=== PATIENT | female | born 1985 | race Caucasian/White ===

== ENCOUNTER 2020-01-20 10:51 | Outpatient (CLI) | payer OTHER, SELFPAY | END 2020-01-20 10:52 | disposition home or self-care (01) | LOC: ANHAUDIO 10:52 | PROVIDERS: PCP Family Medicine; Visit Provider Otolaryngology | DX: R42 Dizziness and giddiness (principal) | CPT/HCPCS: 92552; 92556; 92567 ==

== ENCOUNTER 2021-06-28 07:44 | Outpatient (CLI) | payer OTHER, SELFPAY ==
[2021-06-28 08:25] LABS: Beta HCG Quantitative < 2.39 mIU/ML
== END 2021-06-28 07:45 | disposition home or self-care (01) ==
PROVIDERS: PCP Family Medicine; Visit Provider Obstetrics & Gynecology
DX: N92.6 Irregular menstruation, unspecified (principal)
CPT/HCPCS: 36415; 84702

== ENCOUNTER 2023-11-21 08:54 | Outpatient (CLI) | payer OTHER, SELFPAY ==
--- NOTE | ~2023-11-21 | US_ITS ---
EXAMINATION: US pelvic complete w TV DATE: 11/21/2023 09:29 INDICATION: Pelvic and perineal pain. TECHNIQUE: Multiple transabdominal and transvaginal sonographic images of the pelvis were obtained. COMPARISON: CT abdomen and pelvis 11/20/2017 FINDINGS: TRANSABDOMINAL ULTRASOUND: The uterus measures 10.7 x 4.5 x 5.4 cm. There is no free fluid in the pelvis. TRANSVAGINAL ULTRASOUND: The endometrial complex measures 5 mm in thickness. There is an intrauterine device in expected posit ion. There is a 2.8 cm subserosal fibroid. The right ovary measures 3.6 x 3.0 x 3.8 cm. The left ovar y measures 3.3 x 2.1 x 2.3 cm. There is normal vascular flow in the ovaries. IMPRESSION: 1. Uterine fibroid. 2. Intrauterine device in expected position. Reviewed, dictated and finalized at location A.
== END 2023-11-21 08:55 ==
LOC: MICIMG 08:55
PROVIDERS: PCP Obstetrics & Gynecology; Visit Provider Obstetrics & Gynecology
DX: R10.2 Pelvic and perineal pain (principal); Z30.431 Encounter for routine checking of intrauterine contraceptive device; D25.9 Leiomyoma of uterus, unspecified
CPT/HCPCS: 76830; 76856

== ENCOUNTER 2024-08-02 11:08 | Outpatient (CLI) | payer OTHER, SELFPAY ==
--- NOTE | ~2024-08-02 | US_ITS ---
Pelvic ultrasound. Clinical History: Pelvic pain Technique: Realtime transabdominal and transvaginal scanning of the pelvis was performed. Color flow Doppler and Doppler spectral analysis were performed. Findings: The uterus is anteverted. The endometrial stripe has a thickness of 5 mm. IUD in satisfact ory position. Fibroid towards the fundus measures 2.3 x 2.3 x 2.5 cm.. The right ovary measures 3.6 x 2.2 x 3.4 cm. No significant right ovarian or adnexal mass is seen. The left ovary measures 2.5 x 1.9 x 2.5 cm. No significant left ovarian or adnexal mass is seen. There is no evidence of free fluid in the cul de sac. Impression: Uterine fibroid, as above. IUD in place. Reviewed, dictated and finalized at location . Impression: Uterine fibroid, as above. IUD in place.
== END 2024-08-02 11:09 | disposition home or self-care (01) ==
LOC: MICIMG 11:09
PROVIDERS: PCP Family Medicine; Visit Provider Student in an Organized Health Care Education/Training Program
DX: R10.2 Pelvic and perineal pain (principal); Z97.5 Presence of (intrauterine) contraceptive device
CPT/HCPCS: 76830; 76856

== ENCOUNTER 2024-12-07 16:01 | Emergency (ER) | payer OTHER, SELFPAY ==
--- OUTSIDE RECORDS SUMMARY | 2018-04-25 05:15 | XMS_ITS | Continuity of Care Document ---
[facility] Organization [facility] Address [address] [place] [address] Phone Care Team Providers Care Research And Development Tester Name Role Phone Kimberli HAMEED, Juaquin Unavailable Unavailable Advance Directives Directive Yes / No Effective Date File Name No Information Encounters Encounter Description Practice Location Reason(s) For Visit Diagnoses Date Provider Providers Copied on [facility], [address], [place], [place], [id number], [place] tel:[phone] [facility] No Information Kimberli Reza. [address] , [place], [place], [id number], [place]. tel:[phone] Referring Provider: Garland Long DO, [address], [place], [address]. tel:[phone] Family History Family Member Type Diagnosis Age At Onset No Information Payers Payer name Insurance type Covered constitution party ID Authoriza tiloli(s) [facility] CI [id number] Social History Type Description Quantity Date Captured Comments Sex Female Smoking Status No Information Chief Complaint And Reason For Visit No Information Reason For Referral Reason For Referral No Information History Of Present Illness Encounter Date Complaint History Of Prese nt Illness No Information Functional Status Date Functional Assessmen t No Information Instructions Date Instruction Additional Infor mation No Information Assessments Type Assessment Date No Information Patient Care Teams Name Effective Dates (start - stop) Status Members No Information
--- OUTSIDE RECORDS SUMMARY | 2020-06-01 08:00 | XMS_ITS | Continuity of Care Document ---
Author Organization [facility] Address [address] [place] [address] Phone Care Team Providers Care Manager Data Center Name Role Phone Vin PT,MPT,ATC, Fabricio Unavailable Unavai lable Procedures Procedure Date Therapeutic Activities Neuromuscular Re-Ed Manual Therapy Therapeutic Exercise Therapeutic Activities Neuromuscular Re-Ed Manual Therapy Neuromuscular Re-Ed Therapeutic Activities Manual Therapy Therapeutic Exercise PT Evaluation Moderate Complexity Therapeutic Activities Manual Therapy Advance Directives Directive Yes / No Effective Date File Name No Information Encounters Encounter Description Practice Location Reason(s) For Visit Diagnoses Date Provider Providers Copied on Encounter [facility] [address], [place], [place], [id number], tel:[phone] [place] No Information b- 1 DIALLO [place], [place]. Referring Provider: [address], [place], [address]. tel:[phone] [facility], [address], [place], [place], [id number], tel:[phone] [place] No Information b 1 DIALLO [place], [place]. Referring Provider: [address], [place], [address]. tel:[phone] [facility], [address], [place], [place], [id number], tel:[phone] [place] No Information b0 1 Vin Faith [place], . Referring Provider: [address], [place], [address]. tel:[phone] [facility], [address], [place], [place], [id number], tel:[phone] [place] No Information b0 1 Vin Faith [place], . Referring Provider: [address], [place], [address]. tel:[phone] Family History Family Member Type Diagnosis Age At Onset No Information Payers Payer name Insurance type Covered democrat ID Authoriza tion(s) No Information Social History Type Description Quantity Date Captured Comments Sex Female Smoking Status No Information Chief Complaint And Reason For Visit No Information Reason For Referral Reason For Referral No Information History Of Present Illness Encounter Date Complaint History Of Prese nt Illness No Information Functional Status Date Functional Assessmen t No Information Instructions Date Instruction Additional Infor calvin Giving encouragement to exercise Related to Overweight Giving encouragement to exercise Related to Overweight Assessments Type Assessment Date No Information Patient Care Teams Name Effective Dates (start - stop) Status Members No Information
[2024-12-07 16:08] VITALS: BP 117/76; PULSE 90; RESP 18; TEMP 36.3; O2SAT 98
[2024-12-07] MEDS: FLUORESCEIN SOD 1 MG/STRIP (16:13)
[2024-12-07] MEDS: TETRACAINE HCL 0.5% OPHTH SOLN 4 ML BTL 1 DROP (16:13)
--- NOTE | 2024-12-07 16:24 | ED.GENADULT ---
HPI - General Adult General Chief complaint: Eye Problems Stated complaint: left eye injury Time Seen by Provider: 12/07/24 16:14 Related Data Home Medications ?Medication ?Instructions ?Recorded ?Confirmed ?Last Taken ?Type levonorgestrel (Mirena) 1 device intrauterine ONCE 07/25/24 09/02/24 Unknown History Allergies Allergy/AdvReac Type Severity Reaction Status Date / Time clavulanic acid Allergy Mild ITCHING,HERI Verified 09/02/24 10:15 H sulfamethoxazole Allergy Mild ITCHING,HERI Verified 09/02/24 10:15 H amoxicillin Allergy Unknown Rash, Verified 09/02/24 10:15 Itchiness azithromycin Allergy Unknown Rash, Verified 09/02/24 10:15 Itchiness cefaclor Allergy Unknown Rash, Verified 09/02/24 10:15 Itchiness Penicillins Allergy Unknown Rash, Verified 09/02/24 10:15 Ichiness sulfamethizole Allergy Unknown Rash, Verified 09/02/24 10:15 Itchiness trimethoprim Allergy Unknown Rash, Verified 09/02/24 10:15 Itchiness PMFSH Past Medical History Medical History Overweight with body mass index (BMI) of 28 to 28.9 in adult BMI 27.0-27.9,adult Diverticulitis BMI 29.0-29.9,adult BMI 30.0-30.9,adult BMI 32.0-32.9,adult Encounter for insertion of mirena IUD Encounter for screening examination for sexually transmitted disease Anxiety rx meds Surgical History Surgical History History of gynecological procedure (06/28/21) mirena iud insertion History of discectomy (05/18/18) of the spine History of back surgery (08/29/18) spinal leak repaired History of gynecological procedure (08/27/19) mirena iud removal Bone marrow donor (~03/17/20) bone marrow donation to brother History of gynecological procedure (09/03/20) suction D&C missed AB History of gynecological procedure (01/28/21) suction D&C Missed AB Family History Family History Grandparent Diabetes mellitus Sibling Leukemia, acute myeloid Family history of malignant neoplasm Other Breast cancer paternal aunt Mother Parkinson disease Leukemia, chronic Hypertension Social History Social History (Updated 09/02/24 @ 10:15 by Chiquita Larsen [facility], 1928–1983) Smoking status: Never smoker Second hand tobacco smoke exposure: No Alcohol intake: current Drinks per week: 3 Substance use: never Substance use type: does not use Do You Feel Safe in your Home?: Yes Lack of Transportation: No Lack of Food: Never True Current Housing: Decline to Answer Concerned About Future Housing: Decline to Answer Difficulty Paying Gas/Electric Bills: Decline to Answer Difficulty Paying for Meds: Decline to Answer Currently Unemployed: Decline to Answer Education: Decline to Answer Difficulty w/ Childcare or Family Care: Decline to Answer Living arrangements: other Additional living arrangements comments: Occupation/Education: occupation 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 Gender identity (if verbalized by the patient): Female Sexual Orientation (if Verbalized by the Patient): Straight or Heterosexual Course Vital Signs Vital signs: Vital Signs Temperature 36.3 C L 12/07/24 16:08 Pulse Rate 90 12/07/24 16:08 Respiratory Rate 18 12/07/24 16:08 Blood Pressure 117/76 12/07/24 16:08 Pulse Oximetry 98 12/07/24 16:08 Oxygen Delivery Room Air 12/07/24 16:08 Temperature 36.3 C L 12/07/24 16:08 Pulse Rate 90 12/07/24 16:08 Respiratory Rate 18 12/07/24 16:08 Blood Pressure 117/76 12/07/24 16:08 Pulse Oximetry 98 12/07/24 16:08 Oxygen Delivery Room Air 12/07/24 16:08 Medical Decision Making Vital Signs Vital Signs: Vital Signs Temperature 36.3 C L 12/07/24 16:08 Pulse Rate 90 12/07/24 16:08 Respiratory Rate 18 12/07/24 16:08 Blood Pressure 117/76 12/07/24 16:08 Pulse Oximetry 98 12/07/24 16:08 Oxygen Delivery Room Air 12/07/24 16:08 Temperature 36.3 C L 12/07/24 16:08 Pulse Rate 90 12/07/24 16:08 Respiratory Rate 18 12/07/24 16:08 Blood Pressure 117/76 12/07/24 16:08 Pulse Oximetry 98 12/07/24 16:08 Oxygen Delivery Room Air 12/07/24 16:08 Discharge Plan Discharge Clinical Impression: Abrasion, corneal Qualifiers: Encounter type: initial encounter Laterality: left Qualified Code(s): S05.02XA - Injury of conjunctiva and corneal abrasion without foreign body, left eye, initial encounter Patient Disposition: Home Condition: Stable Instructions: Antibiotic Form, Corneal Abrasion (ED) Patient Language: Guyanese Prescriptions: New moxifloxacin 0.5 % drops 1 drp LEFT EYE TID 7 Days Qty: 3 0RF No Action ferrous sulfate 325 mg (65 mg iron) tablet 325 mg PO DAILY Qty: 30 0RF Mirena 21 mcg/24hr (up to 8 yrs) 52 mg intrauterine device 1 device intrauterine ONCE Rx Instructions: as a single dose Nurtec ODT 75 mg tablet,disintegrating 75 mg PO ONCE PRN (Reason: migraine headache) Qty: 8 3RF Rx Instructions: as a single dose sertraline 50 mg tablet 50 mg PO DAILY Qty: 90 1RF Contrave 8-90 mg tablet extended release 2 tablet PO BID Qty: 120 0RF alprazolam [Xanax] 0.25 mg tablet 0.25 mg PO BID PRN (Reason: anxiety) Qty: 60 0RF trazodone 50 mg tablet 50 mg PO QHS PRN (Reason: insomnia) Qty: 90 1RF Follow-up/Referrals: Diana York FNP [Primary Care Provider, [facility]] Time of Disposition: 16:28
[2024-12-07] MEDS: TETRACAINE HCL 0.5% OPHTH SOLN 4 ML BTL 1 DROP EACH EYE (16:30)
[2024-12-07] MEDS: FLUORESCEIN SOD 1 MG/STRIP EACH EYE (16:30)
--- OUTSIDE RECORDS SUMMARY | 2024-12-07 16:35 | XMS_ITS | Continuity of Care Document ---
Author Name [facility] Organization [facility] Care Team Providers Care Upholstered Goods Crafter Name Role Phone [facility] Unavailable Unavailable Immunizations Combined list of available immunizations from the Department of Defense and Veterans Affairs facilities. Immunization Series Date Given Administered By Site Reaction Lot Number CVX Code Drug Slip Dumper Status Comments Source COVID Vaccine Pfizer 2020 208 PFIZER complet ed COVID Vaccine Pfizer 10/12/20 Given Ambulat ory Pharmac y COVID Vaccine Pfizer 2020 208 PFIZER complet ed COVID Vaccine Pfizer 09/12/20 Given Ambulat ory Pharmac y Procedures Combined list of: 1) [facility], not all [place] non-surgical procedures are included; 2) All procedures from the Department of [facility] facilities. Procedure Procedure Type Code Date Perfomer Comments Sourc e No data available for this section Ambulatory P harmacy Social History Combined list of available smoking, tobacco, and other social history from Department of Defense and Veterans Affairs facilities. Social History Type Response Date Comment Sourc e Sexual Orientation Ambula tory Pharmacy Gender identity Ambulator y Pharmacy Sex Representation Female (finding) Unknown Organization Assessment and Plan Combined list of future care activities from Department of Defense and Veterans Affairs facilities (e.g., assessment and plan notes, appointments, orders, and referrals). Additional future care activities may be listed in the Plan of Care section. Result Assessment and Plan Date Source Assessment and Plan No data available for this section 12/07/2024 Ambulatory Pharmacy Functional Status Combined list of recent functional and cognitive assessments recorded at [facility] Functional [place] Measurement (FIM) Scale: 1 = Total Assistance (Subject = 0% +), 2 = Maximal Assistance (Subject = 25% +), 3 = Moderate Assistance (Subject = 50% +), 4 = Minimal Assistance (Subject = 75% +), 5 = Supervision, 6 = Modified Tyler (Device), 7 = Complete Tyler (Timely, Safely). Assessment Date/Time Source Assessment Type Assessment Skill Assessment Score Assessment Details No data available for this section
== END 2024-12-07 16:44 | disposition home or self-care (01) ==
PROVIDERS: Emergency Provider Emergency Medicine; PCP Nurse Practitioner Family
DX: S05.02XA Injury of conjunctiva and corneal abrasion without foreign body, left eye, initial encounter (principal); E66.3 Overweight; Z68.29 Body mass index [BMI] 29.0-29.9, adult; F41.9 Anxiety disorder, unspecified; Z97.5 Presence of (intrauterine) contraceptive device; Z79.899 Other long term (current) drug therapy; W22.8XXA Striking against or struck by other objects, initial encounter
CPT/HCPCS: 99283